=== PATIENT | female | born 1955 | race Caucasian/White ===

== ENCOUNTER 2017-08-16 18:49 | Emergency (ER) | payer MEDICAID ==
[~2017-08-16] VITALS: Ht 154.9 cm; Wt 33.4 kg
[2017-08-16 19:26] LABS: CLARITY,URINE CLEAR (Clear); COLOR,URINE YELLOW (Yellow); GLUCOSE, URINE NEGATIVE (Neg); KETONES,URINE NEGATIVE (Neg); LEUKOCYTE ESTERASE ,URINE NEGATIVE (Neg); NITRITES, URINE NEGATIVE (Neg); OCCULT BLOOD,URINE TRACE-INTACT (Neg); PH,URINE 7.5 (4.8-8.0); PROTEIN,URINE NEGATIVE (Neg); UROBILINOGEN,URINE 0.2 E.U/dL (0.2-1.0)
[2017-08-16 19:27] LABS: UA COLLECTION TYPE CLN CATCH MIDSTREAM
[2017-08-16 19:32] LABS: BASOPHILS % (AUTO) 0.5 % (0-1); EOSINOPHILS # (AUTO) 0.4 X10'3 (0-0.9); EOSINOPHILS % (AUTO) 3.8 % (0-6); HEMATOCRIT 40.3 % (35.0-45.0); HEMOGLOBIN 13.8 g/dl (12.0-16.0); LYMPHOCYTES # (AUTO) 3.2 X10'3 (1.1-4.8); LYMPHOCYTES % (AUTO) 34.1 % (21-51); MEAN CORPUSCULAR HEMOGLOBIN 32.5 PG (27.0-31.0); MEAN CORPUSCULAR HGB CONC 34.3 % (33.0-36.5); MEAN CORPUSCULAR VOLUME 94.7 FL (78-98); MEAN PLATELET VOLUME 7.2 FL (7.4-10.4); MONOCYTES # (AUTO) 0.6 X10'3 (0-0.9); MONOCYTES % (AUTO) 6.1 % (2-12); NEUTROPHILS # (AUTO) 5.2 X10'3 (1.8-7.7); NEUTROPHILS % (AUTO) 55.5 % (42-75); PLATELET COUNT 306 X10'3 (140-440); RED BLOOD COUNT 4.25 X10'6 (4.20-5.60); RED CELL DISTRIBUTION WIDTH 13.8 % (11.5-14.5); WHITE BLOOD COUNT 9.4 X10'3 (4.5-11.0)
[2017-08-16 19:38] LABS: MUCUS STRANDS FEW /LPF (Neg); SQUAMOUS EPITHELIAL CELL,UR MODERATE /LPF (FEW)
[2017-08-16 19:39] LABS: BACTERIA,URINE 1+ /HPF (Neg); WBC,URINE 0-4 /HPF (0-4)
[2017-08-16 19:40] LABS: PROTHROMBIN TIME 10.1 SECONDS (9.0-12.0)
[2017-08-16 19:49] LABS: ALANINE AMINOTRANSFERASE 24 U/L (12-78); ALBUMIN 4.2 G/DL (3.4-5.0); ALBUMIN/GLOBULIN RATIO 1.3 (1.1-1.5); ALKALINE PHOSPHATASE 51 IU/L (46-116); ANION GAP 8 (8-16); ASPARTATE AMINO TRANSFERASE 19 U/L (10-37); BILIRUBIN,TOTAL 0.5 MG/DL (0.1-1.0); BLOOD UREA NITROGEN 14 MG/DL (7-18); BUN/CREATININE RATIO 17.9 (6.6-38.0); CHLORIDE 104 MMOL/L (99-107); CREATININE 0.78 MG/DL (0.40-0.90); GLUCOSE 78 MG/DL (70-104); POTASSIUM 3.9 MMOL/L (3.5-5.1); SODIUM 141 MMOL/L (135-145); TOTAL CARBON DIOXIDE 28.6 MMOL/L (24-32); TOTAL PROTEIN 7.4 G/DL (6.4-8.2); eGFR 75 ML/MIN
[2017-08-16 21:40] VITALS: BP 105/65
== END 2017-08-16 21:42 | disposition home or self-care (01) ==
LOC: ER 18:50
DX: R10.12 Left upper quadrant pain (principal); R11.0 Nausea; F17.210 Nicotine dependence, cigarettes, uncomplicated; G89.29 Other chronic pain; Z85.42 Personal history of malignant neoplasm of other parts of uterus; Z86.73 Personal history of transient ischemic attack (TIA), and cerebral infarction without residual deficits
CPT/HCPCS: 36415; 80053; 81001; 85025; 85610; 99284

== ENCOUNTER 2019-08-01 01:44 | Emergency (ER) | payer MEDICARE, MEDICAID ==
[~2019-08-01] VITALS: Ht 154.9 cm; Wt 38.6 kg
[2019-08-01 03:11] LABS: BASOPHILS # (AUTO) 0.1 X10'3 (0-0.2); BASOPHILS % (AUTO) 1.3 % (0-1); EOSINOPHILS # (AUTO) 0.1 X10'3 (0-0.9); EOSINOPHILS % (AUTO) 1.9 % (0-6); HEMATOCRIT 37.9 % (35.0-45.0); HEMOGLOBIN 12.9 g/dl (12.0-16.0); LYMPHOCYTES # (AUTO) 1.7 X10'3 (1.1-4.8); LYMPHOCYTES % (AUTO) 24.2 % (21-51); MEAN CORPUSCULAR HEMOGLOBIN 32.1 PG (27.0-31.0); MEAN CORPUSCULAR HGB CONC 34.1 g/dL (33.0-36.5); MEAN CORPUSCULAR VOLUME 94.1 FL (78-98); MEAN PLATELET VOLUME 7.4 FL (7.4-10.4); MONOCYTES # (AUTO) 0.6 X10'3 (0-0.9); MONOCYTES % (AUTO) 8.5 % (2-12); NEUTROPHILS # (AUTO) 4.5 X10'3 (1.8-7.7); NEUTROPHILS % (AUTO) 64.1 % (42-75); PLATELET COUNT 355 X10'3 (140-440); RED BLOOD COUNT 4.03 X10'6 (4.20-5.60); RED CELL DISTRIBUTION WIDTH 13.5 % (11.5-14.5)
[2019-08-01 03:25] LABS: ALANINE AMINOTRANSFERASE 13 U/L (12-78); ALBUMIN 3.3 G/DL (3.4-5.0); ALKALINE PHOSPHATASE 72 IU/L (46-116); ANION GAP 10 (8-16); ASPARTATE AMINO TRANSFERASE 19 U/L (10-37); BILIRUBIN,TOTAL 0.5 MG/DL (0.1-1.0); BLOOD UREA NITROGEN 12 MG/DL (7-18); BUN/CREATININE RATIO 23.1 (6.6-38.0); CALCIUM 9.1 MG/DL (8.5-10.1); CHLORIDE 106 MMOL/L (99-107); CREATININE 0.52 MG/DL (0.40-0.90); GLUCOSE 84 MG/DL (70-104); POTASSIUM 3.3 MMOL/L (3.5-5.1); SODIUM 141 MMOL/L (135-145); TOTAL CARBON DIOXIDE 25.2 MMOL/L (24-32); TOTAL PROTEIN 6.7 G/DL (6.4-8.2); eGFR > 90 ML/MIN
[2019-08-01 03:33] LABS: ETHANOL < 0.010 GM/DL (0.0-0.010)
[2019-08-01] MEDS ORDERED: OLAN2.5T3 PO (03:42)
[2019-08-01] MEDS ORDERED: FAMO20TA8 PO (03:42)
[2019-08-01] MEDS ORDERED: MELO-102 PO (03:42)
[2019-08-01 03:44] LABS: URINE HCG NEGATIVE (NEG)
[2019-08-01 03:51] LABS: CLARITY,URINE CLEAR (Clear); COLOR,URINE YELLOW (Yellow); GLUCOSE, URINE NEGATIVE (Neg); KETONES,URINE 15 mg/dl (Neg); LEUKOCYTE ESTERASE ,URINE NEGATIVE (Neg); NITRITES, URINE NEGATIVE (Neg); OCCULT BLOOD,URINE TRACE-INTACT (Neg); PH,URINE 6.5 (4.8-8.0); PROTEIN,URINE NEGATIVE (Neg); UROBILINOGEN,URINE 0.2 E.U/dL (0.2-1.0)
[2019-08-01 04:00] LABS: URINE AMPHETAMINE SCREEN NEGATIVE (Neg); URINE BARBITUATE SCREEN NEGATIVE (Neg); URINE BENZODIAZEPINES SCREEN NEGATIVE (Neg); URINE CANNABINOID SCREEN POSITIVE (Neg); URINE COCAINE SCREEN NEGATIVE (Neg); URINE METHADONE SCREEN NEGATIVE (Neg); URINE OPIATE SCREEN NEGATIVE (Neg); URINE PHENCYCLIDINE SCREEN NEGATIVE (Neg)
[2019-08-01 04:01] LABS: UA COLLECTION TYPE CLN CATCH MIDSTREAM
[2019-08-01 04:04] LABS: BACTERIA,URINE FEW /HPF (Neg); MUCUS STRANDS MODERATE /LPF (Neg); SQUAMOUS EPITHELIAL CELL,UR MODERATE /LPF (FEW); WBC,URINE 0-4 /HPF (0-4)
--- NOTE | 2019-08-01 04:12 | NUR ---
WHILE ENTERING PT MED REC, I NOTICED 3 MEDICATIONS THAT PT POSSIBLY OD: 7.5 MELOXICAM, ORDERED TO TAKE 1-2 TAB DAILY, FILLED ON 06/19/19, 7 PILLS LEFT 20 MG ATORVASTATIN, ORDERED TO TAKE 1 TAB DAILY, FILLED ON 05/13/19, 4 PILLS LEFT 5 MG OXYBUTYNIN CL ER, ORDERED TO TAKE 1 TAB DAILY, FILLED ON 06/19/19, NO PILLS LEFT ASKED PT ABOUT MEDICATION DESCREPANCY AND PT SAID "I TAKE FOUR PILLS A DAY". ASKED PT IF SHE HAS A ROOMMATE AND IF THEY MAY HAVE TAKEN HER MEDICATIONS, PT STATED "I DONT KNOW" NOTIFIED LEXI HAN AND RAMÍREZ ARANDA RN
--- NOTE | 2019-08-01 04:16 | NUR ---
CALLED POISON CONTROL: MELOXICAM OD WOULD CAUSE GI SYMPTOMS, ACIDOSIS, ACUTE RENAL FAILURE, AND SEIZURES. ATORVASTATIN OD WOULD CAUSE GI SYMPTOMS. OXYBUTYNIN OD WOULD CAUSE MENTAL STATUS CHANGES, ANTICHOLINERGIC SYMPTOMS. RECOMMENDED TO PERFORM FULL TOX SCREEN, CHEM PANEL NOW, AND REPEAT CHEM PANEL IN 4 HRS, AND TO MONITOR FOR SIGNS OF ANTICHOLINERGIC SYMPTOMS (FLUSHED, WARM, DRY SKIN, DILATED PUPILS, ETC) NOTIFIED LEXI HAN OF RECOMMENDATIONS
[2019-08-01] MEDS ORDERED: potassium Cl 20 mEq SR tablet PO STA (05:17)
--- NOTE | 2019-08-01 05:40 | NUR ---
PT MEDICALLY CLEARED BY ZOLTAN ELLIOTT. PT MOVED TO OVERFLOW BED 27 BY WHEELCHAIR BY LIZETH GUY. PT STABLE AND NO SIGNS/SYMPTOMS OF DISTRESS. RESPIRATIONS EVEN AND UNLABORED. PT DENIES ANY CURRENT PAIN AND GIVEN WARM BLANKETS. WILL CONTINUE TO MONITOR.
--- NOTE | 2019-08-01 06:45 | NUR ---
Pt is resting in bed peacefully at this time with no distress observed. Will continue to monitor.
[2019-08-01] MEDS ORDERED: OLANZapine 2.5MG tablet PO SCH (08:00)
[2019-08-01] MEDS ORDERED: famotidine 20mg tablet PO SCH (08:00)
--- NOTE | 2019-08-01 08:45 | NUR ---
Pt is up eating breakfast. She is sitting in high fowlers. No distress observed. Pt took morning medications without incident. Will continue to monitor.
--- NOTE | 2019-08-01 09:46 | NUR ---
Poison control called to check on patient.
--- NOTE | 2019-08-01 10:56 | NUR ---
Patient is seen standing at bed side. She is delusional stating, "I am not a male, I do not have to have sex if I don't want to". She exhibits some tangential thoughts, making statements that are not aligned with the topic conversation. She is agitated and states "i just wan t my things and to go". Gave patient warm beverage and offered active listening. Will continue to monitor.
--- NOTE | 2019-08-01 12:04 | NUR ---
Patient is resting in bed peacefully on her right side, no distress observed, will continue to monitor.
--- NOTE | 2019-08-01 12:40 | NUR ---
pt is resting in bed. no concerns at this time
--- NOTE | 2019-08-01 13:12 | NUR ---
Pt is sitting in bed eating lunch, no distress observed.
--- NOTE | 2019-08-01 13:45 | NUR ---
[facility] is at bedside evaluating the patient. The patient is heard speaking loudly and stating "I just want you to give me my car back".
[2019-08-01] MEDS ORDERED: nicotine 7mg patch - 24hr TD SCH (18:30)
--- NOTE | 2019-08-01 18:30 | NUR ---
Received report from Latisha GUY. Patient is standing at the foot of her bed with a blanket wrapped around her. No distress is noted at this time, respirations are even and unlabored. Will continue to monitor.
--- NOTE | 2019-08-01 20:30 | NUR ---
Patient in bed resting with eyes closed. No distress si noted at this time, RR are even and unlabored. Will continue to monitor.
[2019-08-01 21:51] VITALS: BP 123/52
[2019-08-02] MEDS ORDERED: ATOR20TA66 PO (01:34)
[2019-08-02] MEDS ORDERED: OXYB5TAB29 PO (01:35)
[2019-08-02] MEDS ORDERED: NICO-630 TOP (01:37)
== END 2019-08-01 21:55 ==
LOC: ER 01:44
DX: F22 Delusional disorders (principal); F20.9 Schizophrenia, unspecified; F12.90 Cannabis use, unspecified, uncomplicated; M19.90 Unspecified osteoarthritis, unspecified site; R41.82 Altered mental status, unspecified; G89.29 Other chronic pain; Z86.73 Personal history of transient ischemic attack (TIA), and cerebral infarction without residual deficits; Z79.899 Other long term (current) drug therapy
CPT/HCPCS: 36415; 70450; 80053; 80305; 80320; 81001; 81025; 84443; 85025; 99285

== ENCOUNTER 2020-06-18 01:10 | Emergency (ER) | payer MEDICARE, MEDICAID ==
[~2020-06-18] VITALS: Ht 160 cm; Wt 54.5 kg
[~2020-06-18 01:10] MED LIST: ATI1T PO; ATOR20TA66 PO; DIPH-423 PO; FAMO20TA8 PO; MELO-102 PO; MELO7.5O PO; NICO-630 TOP; OLAN10TA19 PO; OLAN5TAB26 PO; OXYB5TAB29 PO; POLY15DR31 EACHEYE; RANI150T8 PO
[2020-06-18 01:37] VITALS: BP 136/87
[2020-06-18] MEDS ORDERED: acetaminophen 325mg tablet PO ONE (02:15)
[2020-06-18] MEDS ORDERED: ASPI81TA52 PO (21:00)
[2020-06-18] MEDS ORDERED: PRAZ5CAP PO (21:00)
[2020-06-18] MEDS ORDERED: ATOR10TA87 PO (21:00)
[2020-06-18] MEDS ORDERED: BACDS PO (21:07)
[2020-06-18] MEDS ORDERED: PRAZ1CAP5 PO (21:07)
[2020-06-18] MEDS ORDERED: FLUT16SP2 BOTHNARES (21:07)
[2020-06-18] MEDS ORDERED: DICL100G30 TOP (21:11)
[2020-06-18] MEDS ORDERED: LORA-512 PO (22:18)
[2020-06-18] MEDS ORDERED: MELO-100 PO (22:18)
[2020-06-19] MEDS ORDERED: BUPR-72 PO (09:31)
[2020-06-19] MEDS ORDERED: OXYB-58 PO (09:31)
[2020-06-19] MEDS ORDERED: FLUT16SP26 (09:31)
== END 2020-06-18 03:21 | disposition home or self-care (01) ==
LOC: ER 01:10
DX: S90.32XA Contusion of left foot, initial encounter (principal); G89.29 Other chronic pain; M54.9 Dorsalgia, unspecified; M19.90 Unspecified osteoarthritis, unspecified site; Z88.8 Allergy status to other drugs, medicaments and biological substances; Z88.5 Allergy status to narcotic agent; Z79.899 Other long term (current) drug therapy; W50.0XXA Accidental hit or strike by another person, initial encounter; Y93.89 Activity, other specified; Y92.89 Other specified places as the place of occurrence of the external cause; Y99.8 Other external cause status
CPT/HCPCS: 73630; 99284

== ENCOUNTER 2020-06-18 18:05 | Emergency (ER) | payer MEDICARE, MEDICAID ==
[~2020-06-18] VITALS: Ht 154.9 cm; Wt 35.6 kg
--- NOTE | 2020-06-18 18:40 | NUR ---
Provider at the bedside to evaluate the patient.
--- NOTE | 2020-06-18 18:47 | NUR ---
Pt is refusing to cooperate with the staff for inventorying her belongings and securing them in a locker. Pt refused to get out of her clothing and into a hospital gown at this time. Provider is aware of the plan.
[2020-06-18 19:26] LABS: BASOPHILS # (AUTO) 0.1 X10'3 (0-0.2); BASOPHILS % (AUTO) 0.7 % (0-1); EOSINOPHILS # (AUTO) 0.1 X10'3 (0-0.9); EOSINOPHILS % (AUTO) 1.7 % (0-6); HEMATOCRIT 38.2 % (35.0-45.0); HEMOGLOBIN 12.4 g/dl (12.0-16.0); LYMPHOCYTES # (AUTO) 1.8 X10'3 (1.1-4.8); LYMPHOCYTES % (AUTO) 21.9 % (21-51); MEAN CORPUSCULAR HEMOGLOBIN 31.4 PG (27.0-31.0); MEAN CORPUSCULAR HGB CONC 32.5 g/dL (33.0-36.5); MEAN CORPUSCULAR VOLUME 96.7 FL (78-98); MEAN PLATELET VOLUME 7.3 FL (7.4-10.4); MONOCYTES # (AUTO) 0.6 X10'3 (0-0.9); MONOCYTES % (AUTO) 6.8 % (2-12); NEUTROPHILS # (AUTO) 5.8 X10'3 (1.8-7.7); NEUTROPHILS % (AUTO) 68.9 % (42-75); PLATELET COUNT 319 X10'3 (140-440); RED BLOOD COUNT 3.95 X10'6 (4.20-5.60); RED CELL DISTRIBUTION WIDTH 14.1 % (11.5-14.5); WHITE BLOOD COUNT 8.4 X10'3 (4.5-11.0)
[2020-06-18] MEDS ORDERED: LORazepam 2 mg/ml vial IM ONE (19:40)
[2020-06-18 19:41] LABS: ALANINE AMINOTRANSFERASE 20 U/L (12-78); ALBUMIN 3.7 G/DL (3.4-5.0); ALBUMIN/GLOBULIN RATIO 1.2 (1.1-1.5); ALKALINE PHOSPHATASE 68 IU/L (46-116); ANION GAP 8 (8-16); ASPARTATE AMINO TRANSFERASE 26 U/L (10-37); BILIRUBIN,TOTAL 0.4 MG/DL (0.1-1.0); BLOOD UREA NITROGEN 17 MG/DL (7-18); BUN/CREATININE RATIO 24.3 (6.6-38.0); CALCIUM 9.4 MG/DL (8.5-10.1); CHLORIDE 107 MMOL/L (99-107); GLUCOSE 73 MG/DL (70-104); POTASSIUM 3.5 MMOL/L (3.5-5.1); SODIUM 143 MMOL/L (135-145); TOTAL CARBON DIOXIDE 27.9 MMOL/L (24-32); TOTAL PROTEIN 6.8 G/DL (6.4-8.2); eGFR 85 ML/MIN
[2020-06-18 19:44] LABS: ACETAMINOPHEN < 2.0 UG/ML (10-30); ETHANOL < 0.010 GM/DL (0.0-0.010)
--- NOTE | 2020-06-18 20:11 | NUR ---
PT REMAINS UNCOOPERATIVE ABOUT GIVING HER BELONGINGS UP OR CHANGING CLOTHING. SECURITY AT BEDSIDE AND 3 ADTL ER STAFF TO HOLD PT ON THE BED WHILE WE WENT THROUGH HER ITEMS. PT WITH 4 HOSPITAL BAGS FULL ONCE INVENTORY COMPLETED. NO ILLICIT DRUGS OR PARAPHENELIA FOUND. PT HAD 2 CELL PHONES. STATES SHE WANTED HER PHONE AND GIVEN IT TO HER TO GET SOME NUMBERS, BUT PT PUT IT UNDER HER COVERS AND THEN WAS UNABLE TO OBTAIN ANY NUMBERS. PHONES COLLECTED AGAIN. PT NOT COOPERATIVE WITH PUTTING ON THE MENTAL HEALTH GREEN SCRUBS, AND WAS GIVEN AMPLE OPPORTUNITY TO DO IT ON HER OWN. SECURITY AND ER TECHS, BONNY AND WILL AND SAIRA, AT BEDSIDE WHILE PT HELD DOWN AND CLOTHING TAKEN OFF AND SCRUBS NOW ON. DINNER TRAY ORDERED. PT REPORTS SHE HAS NOT EATEN AND IS HUNGRY AND THIRSY. PT THEN GIVEN 3 WARM BLANKETS. STILL NEED TO COLLECT URINE SAMPLE. PT REPORTS UNABLE TO VOID. 2 RINGS FOUND IN PTS PURSE AND 2 RINGS TAKEN OFF PT. RINGS ARE LOCKED IN THE ADMITTING SAFE. PT NOW LYING ON HER RIGHT SIDE WITH BLANKETS COVERING TO HER SHOUDERS. PHARMACY. GABRIELA, PRIMARY RN, UPDATED ON SITUATION. TERESITA MOMIN, HAS ORDERED ATIVAN IF NEEDED.
--- NOTE | 2020-06-18 20:43 | NUR ---
Patient given a meal tray and milk to drink. Pt is upset but more cooperative with staff at this time.
[2020-06-18] MEDS ORDERED: ASPI81TA52 PO (21:00)
[2020-06-18] MEDS ORDERED: ATOR10TA87 PO (21:00)
[2020-06-18] MEDS ORDERED: PRAZ5CAP PO (21:00)
[2020-06-18] MEDS ORDERED: FLUT16SP2 BOTHNARES (21:07)
[2020-06-18] MEDS ORDERED: BACDS PO (21:07)
[2020-06-18] MEDS ORDERED: PRAZ1CAP5 PO (21:07)
[2020-06-18] MEDS ORDERED: DICL100G30 TOP (21:11)
--- NOTE | 2020-06-18 21:45 | NUR ---
Pt is calmer and cooperative at this time.
--- NOTE | 2020-06-18 22:16 | NUR ---
PT MOVED FROM BED 3 IN ER TO BED 14 IN MAIN ER.
[2020-06-18] MEDS ORDERED: LORA-512 PO (22:18)
[2020-06-18] MEDS ORDERED: MELO-100 PO (22:18)
[2020-06-18 23:54] LABS: CLARITY,URINE CLEAR (Clear); COLOR,URINE YELLOW (Yellow); GLUCOSE, URINE NEGATIVE (Neg); KETONES,URINE TRACE mg/dl (Neg); LEUKOCYTE ESTERASE ,URINE TRACE (Neg); NITRITES, URINE NEGATIVE (Neg); OCCULT BLOOD,URINE NEGATIVE (Neg); PH,URINE 6.5 (4.8-8.0); PROTEIN,URINE NEGATIVE (Neg); UROBILINOGEN,URINE 0.2 E.U/dL (0.2-1.0)
[2020-06-18 23:58] LABS: UA COLLECTION TYPE CLN CATCH MIDSTREAM
[2020-06-19 00:01] LABS: BACTERIA,URINE 1+ /HPF (Neg); RBC,URINE 0-2 /HPF (0-2); SQUAMOUS EPITHELIAL CELL,UR FEW /LPF (FEW); WBC,URINE 0-4 /HPF (0-4)
[2020-06-19 00:06] LABS: URINE AMPHETAMINE SCREEN NEGATIVE (Neg); URINE BARBITUATE SCREEN NEGATIVE (Neg); URINE BENZODIAZEPINES SCREEN NEGATIVE (Neg); URINE CANNABINOID SCREEN NEGATIVE (Neg); URINE COCAINE SCREEN NEGATIVE (Neg); URINE METHADONE SCREEN NEGATIVE (Neg); URINE OPIATE SCREEN NEGATIVE (Neg); URINE PHENCYCLIDINE SCREEN NEGATIVE (Neg)
[2020-06-19] MEDS ORDERED: normal saline 1000ML IV soln IVB ONE (00:30)
[2020-06-19 05:48] VITALS: BP 106/77
--- NOTE | 2020-06-19 07:51 | NUR ---
emilia zuniga reported faxing packet to [facility]
--- NOTE | 2020-06-19 08:05 | NUR ---
Breaking primary RN, pt is laying on his right side, head covered with blanket, regular breathing present, no agitation observed
--- NOTE | 2020-06-19 08:50 | NUR ---
Pt ate most of her breakfast. RN helped pt to bedside commode because pt is weak and frail, and appears malnourished. Pt states her only problem is "needing a home." while she was able to tell me who she is and where she is, she had no recollection of why she was here, denying any psychiatric history. Pt was tangetial, disorganized and delusional, talking about "going to school for art therapy", "my mothers needed the emerald ring", "I work for the [employer] because things are going on that you don't understand, the babies need protection. It is about the children." Pt states she takes medications but could not recall which; this RN will contact pharmacy to review the medicaitons pt came in with.
--- NOTE | 2020-06-19 09:07 | NUR ---
Pt being evaluated by SCM.
[2020-06-19] MEDS ORDERED: OXYB-58 PO (09:31)
[2020-06-19] MEDS ORDERED: FLUT16SP26 (09:31)
[2020-06-19] MEDS ORDERED: BUPR-72 PO (09:31)
--- NOTE | 2020-06-19 09:57 | NUR ---
Pt finished breakfast then was assisted by this RN to the bathroom. Pt continues to make comments like "My sister is a pedophile, I want no contact with her" and "my brother just from a bike crash. He was doing drugs" and "I have rash all over" (pt points but there is no observed rash)." Pt cooperative with care. Pt is now resting on her side with two warm blankets.
[2020-06-19] MEDS ORDERED: MELOXICAM 7.5 MG PO PRN (10:30)
[2020-06-19] MEDS ORDERED: (Diclofenac Sodium 1 APPLIC) TP PRN (10:30)
--- NOTE | 2020-06-19 11:00 | NUR ---
Pt given some toiletries at her request; shampoo cap used to wash pt's hair and pt completed other hygeine ADLs independently.
[2020-06-19] MEDS ORDERED: atorvastatin 10mg tablet PO SCH (12:28)
[2020-06-19] MEDS ORDERED: buPROPion SR 150mg tablet PO SCH (12:29)
[2020-06-19] MEDS ORDERED: fluticasone nasal spray 16GM bottle NS SCH (12:29)
[2020-06-19] MEDS ORDERED: loratadine 10mg tablet PO SCH (12:29)
[2020-06-19] MEDS ORDERED: OXYBUTYNIN CHLORIDE 5 MG PO SCH (12:30)
--- NOTE | 2020-06-19 12:30 | NUR ---
left message for Nagi De Los Santos at [facility] which is the patients advocate. [phone]
--- NOTE | 2020-06-19 12:32 | NUR ---
[facility] informed us that patient is accepted at [facility]
[2020-06-19] MEDS ORDERED: LORazepam 1 MG tablet PO ONE (12:55)
--- NOTE | 2020-06-19 13:29 | NUR ---
Pt given morning medications and Ativan 1mg due to agitation related to upcoming transfer to [facility]. Pt happy to recieve decaf coffee and ate all of her lunch. She is observed to be talking loudly to herself.
--- NOTE | 2020-06-19 13:55 | NUR ---
Pt transferred to [facility] at 1355 via with security . Shantelle Samaria given original 5150 and pt belongings, including medications brought to Overflow from pts belongings. Pt is upset about transport but cooperating.
[2020-06-19] MEDS ORDERED: sulfamethoxazole/trimethoprim DS (800/160mg) tablet PO SCH (20:00)
[2020-06-19] MEDS ORDERED: prazosin 1mg capsule PO SCH (21:00)
[2020-06-20] MEDS ORDERED: atorvastatin 10mg tablet PO SCH (08:00)
[2020-06-20] MEDS ORDERED: loratadine 10mg tablet PO SCH (08:00)
[2020-06-20] MEDS ORDERED: buPROPion SR 150mg tablet PO SCH (08:00)
[2020-06-20] MEDS ORDERED: non-formulary drug (Oxybutynin Chloride (Ditropan Xl) 1 TAB) PO SCH (08:00)
[2020-06-20] MEDS ORDERED: fluticasone nasal spray 16GM bottle NS SCH (08:00)
[2020-06-20] MEDS ORDERED: aspirin 81mg tablet.DR PO SCH (08:00)
[2020-06-20] MEDS ORDERED: OXYBUTYNIN CHLORIDE 5 MG PO SCH (08:00)
== END 2020-06-19 13:58 ==
LOC: ER 18:06
DX: F22 Delusional disorders (principal)
CPT/HCPCS: 36415; 80053; 80305; 80320; 80329; 81001; 85025; 96372; 99285; J2060

== ENCOUNTER → 2025-04-25 | Outpatient (CLI) | payer MEDICARE, MEDICAID ==
[~2025-04-25] MED LIST changes: +ASPI81TA52 PO; -ATI1T PO; +BUSP15TA3 PO; -DIPH-423 PO; -FAMO20TA8 PO; +FLUT9.9S NS; +LEVO25TA7 PO; +LORA10TA65 PO; +MELO-100 PO; -MELO-102 PO; -MELO7.5O PO; -NICO-630 TOP; +NICO-631 TD; -OLAN10TA19 PO; -OLAN5TAB26 PO; +OLAN5TAB75 PO; -POLY15DR31 EACHEYE; -RANI150T8 PO; +SUMA25TA9 PO; +TRAZ-251 PO
--- NOTE | 2025-04-25 13:58 | RADIOLOGY REPORT ---
Procedure: CT CT CHEST LOW DOSE Reason for study/Clinical History: NICOTINE DEPENDENCE, CIGARETTES, UNCOMPLICATED COMPARISON: None TECHNIQUE: Multidetector CT of the chest was performed from the lung apices to the upper abdomen without the use of intravenous contract. Axial, coronal and sagittal multiplanar reformats were performed. Radiation Dose Information: CT Dose: CTDI volume is 1.9 mGy. Dose-length product is 71.2 mGy*cm The dose indicators for CT are the volume Computed Tomography (CT) Dose Index (CTDIvol) and the Dose Length Product (DLP), and are measured in units of mGy and mGy-cm, respectively. These indicators are not patient dose, but values generated from the CT scanner acquisition factors. The report includes radiation exposure data for exposures received during this examination. FINDINGS: Lower neck: Normal thyroid. Lungs: No focal consolidation. Biapical scarring, [id number]. Severe centrilobular emphysema. No suspicious pulmonary nodules. 0.4 cm calcified granuloma in the right lower lobe, image 141. Heart/Vascular Structures: Normal heart size. No pericardial effusion. Lymph Nodes: No adenopathy Pleura: No pleural effusion or significant pneumothorax. Musculoskeletal: No acute osseous abnormality. Osteopenia. Degenerative changes of the spine. Soft tissues: Normal. Upper abdomen: Calcified granuloma in the right hepatic dome measures 1.0 cm. IMPRESSION: No acute cardiopulmonary disease. Severe centrilobular emphysema. No suspicious pulmonary nodules. Calcified granuloma in the right lower lobe and right hepatic dome. Lung-RADS: Negative. Continue annual screening with low dose CT in 12 months. LUNG RADS Category 1: Continue annual screening with LDCT
== END | disposition home or self-care (01) ==
LOC: RAD 12:28
PROVIDERS: ATTEND Student in an Organized Health Care Education/Training Program
DX: Z12.2 Encounter for screening for malignant neoplasm of respiratory organs (principal); J43.2 Centrilobular emphysema; J84.10 Pulmonary fibrosis, unspecified; J98.4 Other disorders of lung; M85.88 Other specified disorders of bone density and structure, other site; F17.210 Nicotine dependence, cigarettes, uncomplicated; M47.814 Spondylosis without myelopathy or radiculopathy, thoracic region; K75.3 Granulomatous hepatitis, not elsewhere classified
CPT/HCPCS: 71271